=== PATIENT | male | born 1985 | race American Indian/Alaskan Native ===

== ENCOUNTER 2019-08-23 22:41 | Emergency (ER) | payer SELFPAY ==
[2019-08-24 05:47] VITALS: BP 138/91
--- NOTE | 2019-08-24 09:14 | Emergency Department Report ---
ED ENT HPI - General Chief complaint: Earache Stated complaint: LT EAR PAIN Time Seen by Provider: 08/24/19 07:47 Source: patient Mode of arrival: Ambulatory Limitations: No Limitations - History of Present Illness Initial comments: Is a pleasant 34-year-old male presents to emergency department for evaluation of left ear pain and drainage over the past 5 days. Patient reports he has tried peroxide in his ear with no relief in his symptoms. He denies any associated symptoms such as fevers, chills, nausea, vomiting, diarrhea, headache, dizziness, blurry vision, chest pain, shortness of breath or any other associated symptoms. Patient denies any known past medical history, current medication use or known allergies to medications. MD complaint: ear pain - Related Data Previous Rx's Medication Instructions Recorded Last Taken Type Ofloxacin 0.3% [Floxin 0.3% Otic] 5 ml OT Q6HR #1 bottle 08/24/19 Unknown Rx ED Dental HPI - General Chief complaint: Earache Stated complaint: LT EAR PAIN Time Seen by Provider: 08/24/19 07:47 Source: patient Mode of arrival: Ambulatory Limitations: No Limitations - Related Data Previous Rx's Medication Instructions Recorded Last Taken Type Ofloxacin 0.3% [Floxin 0.3% Otic] 5 ml OT Q6HR #1 bottle 08/24/19 Unknown Rx ED Review of Systems ROS: Stated complaint: LT EAR PAIN Other details as noted in HPI Comment: All other systems reviewed and negative Constitutional: denies: chills, fever Eyes: denies: eye pain, eye discharge, vision change ENT: as per HPI, ear pain. denies: throat pain Respiratory: denies: cough, shortness of breath, wheezing Cardiovascular: denies: chest pain, palpitations Endocrine: no symptoms reported Gastrointestinal: denies: abdominal pain, nausea, diarrhea Genitourinary: denies: urgency, dysuria Musculoskeletal: denies: back pain, joint swelling, arthralgia Skin: denies: rash, lesions Neurological: denies: headache, weakness, paresthesias Psychiatric: denies: anxiety, depression Hematological/Lymphatic: denies: easy bleeding, easy bruising ED Past Medical Hx - Past Medical History Previous Medical History?: No - Surgical History Past Surgical History?: Yes Additional Surgical History: Hernia - Social History Smoking Status: Current Every Day Smoker Substance Use Type: Marijuana - Medications Home Medications: Home Medications Medication Instructions Recorded Confirmed Last Taken Type Ofloxacin 0.3% [Floxin 0.3% Otic] 5 ml OT Q6HR #1 bottle 08/24/19 Unknown Rx ED Physical Exam - General Limitations: No Limitations General appearance: alert, in no apparent distress - Head Head exam: Present: atraumatic, normocephalic - Eye Eye exam: Present: normal appearance - ENT ENT exam: Present: normal exam, mucous membranes moist, TM's normal bilaterally, other (external ear exam on the left shows purulent drainage with edematous external auditory canal. Tympanic membrane evaluation was limited but appears normal. There is no mastoid tenderness.) - Neck Neck exam: Present: normal inspection, full ROM. Absent: meningismus - Respiratory Respiratory exam: Present: normal lung sounds bilaterally. Absent: respiratory distress, wheezes, rales, rhonchi, stridor - Cardiovascular Cardiovascular Exam: Present: regular rate, normal rhythm, normal heart sounds. Absent: systolic murmur, diastolic murmur, rubs, gallop - GI/Abdominal GI/Abdominal exam: Present: soft, normal bowel sounds - Rectal Rectal exam: Present: deferred - Extremities Exam Extremities exam: Present: normal inspection - Back Exam Back exam: Present: normal inspection - Neurological Exam Neurological exam: Present: alert, oriented X3 - Psychiatric Psychiatric exam: Present: normal affect, normal mood - Skin Skin exam: Present: warm, dry, intact, normal color. Absent: rash ED Course Vital Signs 08/24/19 08/24/19 01:08 05:42 Temperature 97.9 F 97.9 F Pulse Rate 64 67 Respiratory 18 18 Rate Blood Pressure 129/80 138/91 O2 Sat by Pulse 100 98 Oximetry ED Medical Decision Making - Medical Decision Making Patient's exam was consistent with otitis externa. Patient had no risk factors for malignant otitis externa and no clinical symptoms of mastoiditis. Patient is nontoxic in no acute distress. We'll treat with topical antibiotics and recommended follow-up with primary care doctor which was provided. Patient was instructed to return emergently changing worsening symptoms. He verbalizes understanding of the diagnosis, treatment plan and follow-up instructions and all questions were answered. - Differential Diagnosis otitis externa, mastoiditis, otitis media Critical care attestation.: If time is entered above; I have spent that time in minutes in the direct care of this critically ill patient, excluding procedure time. ED Disposition Clinical Impression: Otitis externa Qualifiers: Otitis externa type: other infective Chronicity: acute Laterality: left Qualified Code(s): H60.392 - Other infective otitis externa, left ear Disposition: TO HOME OR SELFCARE Is pt being admited?: No Condition: Stable Instructions: Otitis Externa (ED) Prescriptions: Ofloxacin 0.3% [Floxin 0.3% Otic] 5 ml OT Q6HR #1 bottle Referrals: PRIMARY CARE, [Primary Care Provider] - 3-5 Days [facility] [Provider Group] - 3-5 Days Forms: Work/School Release Form(ED) Time of Disposition: 09:14
== END 2019-08-24 09:29 | disposition home or self-care (01) ==
LOC: ED 22:41
DX: H60.92 Unspecified otitis externa, left ear (principal); F17.200 Nicotine dependence, unspecified, uncomplicated; F12.10 Cannabis abuse, uncomplicated